=== PATIENT | female | born 1955 | race Caucasian/White ===

== ENCOUNTER 2021-11-13 09:34 | Outpatient (CLI) | payer MEDICARE, OTHER, SELFPAY ==
--- NOTE | ~2021-11-13 | XR_ITS ---
EXAMINATION: XR lg joint inject/asp w image DATE: 11/13/2021 10:47 INDICATION: Left glenohumeral osteoarthritis with several months of left shoulder pain after lifting injury. TECHNIQUE: A time-out was performed to verify the patient's name, date of , and procedure to darline e performed. The procedure including the risks, benefits, and alternatives was discussed with the pat ient. Risks discussed included bleeding and infection. The patient understood the risks and agreed to proceed. The skin overlying the rotator cuff interval of the left glenohumeral joint was prepped an d draped in usual sterile fashion. Anesthetic was administered with 1% lidocaine subcutaneously. A 22 G needle was advanced under fluoroscopic guidance into the joint. Injection of 1 mL of Omnipaque 240 confirmed intra-articular position of the needle. Subsequently, injectate consisting of 5 mL of a 3:2 mixture of 1% lidocaine: 40 mg/mL Depo-Medrol for a total dosage of 80 mg Depo-Medrol was insti lled. Washout of contrast was seen confirming intra-articular administration. The needle was removed and the entry site was cleaned and dressed. There were no immediate complications. Fluoroscopy expos ure time was 0.1 minutes. The total number of images was 3. FINDINGS: Real-time fluoroscopy demonstrates the needle in the left glenohumeral joint. Patient's zoey n prior to procedure:10/10. Patient's pain following the procedure: 3/10. Incidentally noted is a sm all amorphous calcific density along the greater tuberosity consistent with rotator cuff calcific ten dinitis. IMPRESSION: 1. Left glenohumeral joint injection of local anesthetic and steroid with decrease in the patient's p resenting pain. 2. Left rotator cuff calcific tendinitis. Reviewed, dictated and finalized at location A. IMPRESSION: 1. Left glenohumeral joint injection of local anesthetic and steroid with decre ase in the patient's presenting pain. 2. Left rotator cuff calcific tendinitis.
== END 2021-11-13 09:35 | disposition home or self-care (01) ==
LOC: ANHIMG 09:42
PROVIDERS: PCP Internal Medicine; Visit Provider Orthopaedic Surgery
DX: M19.112 Post-traumatic osteoarthritis, left shoulder (principal); M75.32 Calcific tendinitis of left shoulder
CPT/HCPCS: 20610; 77002; J1030; Q9966